=== PATIENT | male | born 1965 | race Caucasian/White ===

== ENCOUNTER 2018-07-03 19:31 | Emergency (ER) | payer OTHER ==
[2018-07-03 19:46] VITALS: BMI 31.0
[2018-07-03] MEDS ORDERED: SODIUM CHLORIDE 1,000 ML IV STA (22:35)
--- NOTE | 2018-07-03 22:35 | PDOC ---
Attending Attestation - HPI HPI: 07/03/18 22:57 Patient is a 53 year old male with no significant past medical history who presents to the ED with complaints of throat pain that began earlier this week. Patient reports experiencing sore throat that he states has gradually increased in intensity over time. He reports being unable to eat solid foods, secondary to pain as well as subjective weight loss over the past 3 weeks but is able to drink liquids just fine. Patient reports having sudden urge to urinate immediately after drinking fluids, that he expressed to be unusual for him, prompting him to come into the ED for further evaluation. Denies chest pain, Sob. Denie nausea, vomiting. Denies contact with sick individuals, out of state travelling. Denies fevers, chills. Denies any other symptoms. Allergies: None Social history: No smoking. No alcohol. No illicit drugs. Surgical history: None PMD: None - Physicial Exam PE: 07/03/18 22:57 Agree with residents Physical Exam. <Vikas Junior - Last Filed: 07/03/18 22:57> - Resident Resident Name: Tereso Salas - ED Attending Attestation I have performed the following: I have examined & evaluated the patient, The case was reviewed & discussed with the resident, I agree w/resident's findings & plan - Medical Decision Making 07/04/18 00:12 53-year-old male with dry mouth polyuria polydipsia and fatigue Labs are consistent with new onset diabetes with normal bicarbonate levels IV fluid normal saline 2 L bolus with repeat fingerstick and insulin when necessary If controlled at a reasonable level patient will be discharged on metformin with specific outpatient follow-up <Kristen Damian - Last Filed: 07/04/18 00:13>
[2018-07-03 23:24] LABS: INR 0.98 (0.83-1.09); PROTHROMBIN TIME (PATIENT) 11.6 SEC (9.7-13.0)
[2018-07-03 23:38] LABS: ALBUMIN 4.2 g/dl (3.4-5.0); ALK PHOS 115 U/L (45-117); ANION GAP 7 MMOL/L (8-16); BILIRUBIN,TOTAL 1.2 mg/dL (0.2-1); BLOOD UREA NITROGEN 16 mg/dL (7-18); CALCIUM 9.7 mg/dL (8.5-10.1); CHLORIDE 98 mmol/L (98-107); CO2 29 mmol/L (21-32); CREATININE 1.3 mg/dL (0.55-1.3); POTASSIUM 4.3 mmol/L (3.5-5.1); SGOT/AST 26 U/L (15-37); SGPT/ALT 62 U/L (13-61); SODIUM 133 mmol/L (136-145); TOT PROT 8.3 g/dl (6.4-8.2)
--- NOTE | 2018-07-03 23:38 | PDOC ---
History of Present Illness - General Chief Complaint: Sore Throat Stated Complaint: PRESSURE IN THE CHEST/SORE THROAT Time Seen by Provider: 07/03/18 22:35 History Source: Patient Exam Limitations: No Limitations - History of Present Illness Initial Comments: 07/04/18 00:07 Patient is a 53M with no known medical problems coming in today complaining of weight loss, polyuria and polydipsia for the past 10 days. Patient states that he is concerned because his mouth always feels dry. Denies fevers, chills, nausea, vomiting. Denies chest pain and shortnes of breath. Amount of weight loss unknown. Patient states that he has not seen a doctor for an large, unknown period of time. Past History - Past Medical History Allergies/Adverse Reactions: Allergies Allergy/AdvReac Type Severity Reaction Status Date / Time No Known Allergies Allergy Verified 07/03/18 19:43 COPD: No - Suicide/Smoking/Psychosocial Hx Smoking History: Never smoked Have you smoked in the past 12 months: No Information on smoking cessation initiated: No Hx Alcohol Use: No Drug/Substance Use Hx: No Review of Systems - Review of Systems Able to Perform ROS?: Yes Comments:: 07/04/18 00:12 GENERAL/CONSTITUTIONAL: No fever or chills. No weakness. HEAD, EYES, EARS, NOSE AND THROAT: No change in vision. No sore throat. CARDIOVASCULAR: No chest pain or shortness of breath RESPIRATORY: No cough, wheezing, or hemoptysis. GASTROINTESTINAL: No nausea, vomiting, diarrhea or constipation. GENITOURINARY: No dysuria, +polyuria MUSCULOSKELETAL: No joint or muscle swelling or pain. No neck or back pain. SKIN: No rash NEUROLOGIC: No headache, vertigo, loss of consciousness, or change in strength/ sensation. ENDOCRINE: +increased thirst. +weight loss HEMATOLOGIC/LYMPHATIC: No anemia, easy bleeding, or history of blood clots. ALLERGIC/IMMUNOLOGIC: No hives or skin allergy. *Physical Exam - Vital Signs Last Vital Signs Temp Pulse Resp BP Pulse Ox 98.6 F 83 20 190/112 H 97 07/03/18 19:44 07/03/18 19:44 07/03/18 19:44 07/03/18 19:44 07/03/18 19:44 - Physical Exam Comments: 07/04/18 00:14 GENERAL: Awake, alert, and fully oriented, in no acute distress HEAD: No signs of trauma, normocephalic, atraumatic EYES: PERRLA, EOMI, sclera anicteric, conjunctiva clear ENT: Auricles normal inspection, hearing grossly normal, nares patent, dry oropharynx NECK: Normal ROM, supple, no lymphadenopathy, JVD, or masses LUNGS: No distress, speaks full sentences, clear to auscultation bilaterally HEART: Regular rate and rhythm, normal S1 and S2, no murmurs, rubs or gallops, peripheral pulses normal and equal bilaterally. ABDOMEN: Soft, nontender, normoactive bowel sounds. No guarding, no rebound. No masses EXTREMITIES: Normal inspection, Normal range of motion, no edema. No clubbing or cyanosis. NEUROLOGICAL: Cranial nerves II through XII grossly intact. Normal speech, normal gait, no focal sensorimotor deficits SKIN: Warm, Dry, normal turgor, no rashes or lesions noted. ED Treatment Course - LABORATORY CBC & Chemistry Diagram: 07/03/18 22:42 07/03/18 22:42 - RADIOLOGY Radiology Studies Ordered: Category Date Time Status CHEST PA & LAT [RAD] Stat Radiology 07/03/18 22:36 Ordered Medical Decision Making - Medical Decision Making 07/04/18 00:14 Patient is 53M with no known medical history here today with polyuria, polydipsia, weight loss. Vitals notable for 190/112. No symptoms consistent with hypertensive emergency. Suspect new onset diabetes. Basic labs sent, will hydrate. CMP shows glucose in 400s, no gap. New onset HTN and DM EKG shows NSR with no st elevations/depressions. Normal axis. Normal intervals. No significant t wave abnormalities. 07/04/18 03:03 BP now controlled, sugar dropping. Discharging with primary care follow up. *DC/Admit/Observation/Transfer Diagnosis at time of Disposition: Diabetes - Referrals Referrals: [facility] [place] [facility] [place] [Provider Group] - Patient Instructions Printed Discharge Instructions: DI for Diabetes Type 2 Additional Instructions: Please follow up with the primary care physician listed below. It is critical that your diabetes is managed by a doctor. The medicine you were prescribed does not cure your diabetes. Please return if you have any new, worsening or concerning symptoms, esepcially fever, chest pain and shortness of breath. You have an appointment on July 06 at noon at the facility below. You will receive a phone call the day before to confirm or reschedule the appointment. Por favor, jocelyne un seguimiento con el mdico de atencin primaria que figura a continuacin. Es crtico que mims diabetes sea manejada por un mdico. El medicamento que le recetaron no sarah beth mims diabetes. Por favor regrese si tiene sntomas nuevos, que empeoran o estn relacionados, fiebre, dolor de pecho y falta de aliento. Tiene olya jeannine el al medioda en las instalaciones a continuacin. Recibir olya llamada telefnica el da anterior para confirmar o reprogramar la jeannine. - Post Discharge Activity
[2018-07-03 23:39] LABS: GLUCOSE,RANDOM 469 mg/dL (74-106)
[2018-07-04 00:06] LABS: HEMATOCRIT 47.3 % (35.4-49); MCH 33.9 pg (25.7-33.7); MCHC 35.9 g/dl (32.0-35.9); MEAN CELL VOLUME 94.5 fl (80-96); PLATELET COUNT 232 K/MM3 (134-434); RDW 12.5 % (11.9-15.9); WHITE BLOOD COUNT 8.5 K/mm3 (4.0-10.0)
[2018-07-04] MEDS ORDERED: SODIUM CHLORIDE 1,000 ML IV STA (00:09)
[2018-07-04] MEDS ORDERED: INSULIN REGULAR HUMAN 100 UNITS/ML *VIAL SQ ONE (02:13)
[2018-07-04] MEDS ORDERED: INSULIN REGULAR HUMAN 100 UNITS/ML *VIAL ONE (02:20)
[2018-07-04 02:29] VITALS: BP 159/72; PULSE 64; TEMP 98.1
[2018-07-04] MEDS ORDERED: metFORMIN HCL 500 MG TABLET (FP) PO ONE (03:16)
--- NOTE | 2018-07-04 09:35 | EKG ---
Test Reason : Blood Pressure : / mmHG Vent. Rate : 076 BPM Atrial Rate : 076 BPM P-R Int : 176 ms QRS Dur : 090 ms QT Int : 386 ms P-R-T Axes : 046 010 027 degrees QTc Int : 434 ms NORMAL SINUS RHYTHM NORMAL ECG NO PREVIOUS ECGS AVAILABLE Confirmed by PORSCHE SHEPPARD, MAXI ([id number]) on 07/04/2018 9:34:52 AM Referred By: Confirmed By:MAXI MORRELL MD
== END 2018-07-04 04:50 | disposition home or self-care (01) ==
LOC: JER 19:31
PROC: 3E0337Z Introduction of Electrolytic and Water Balance Substance into Peripheral Vein, Percutaneous Approach (ICD-10-PCS; principal; 2018-07-03)
PROC: 3E013VG Introduction of Insulin into Subcutaneous Tissue, Percutaneous Approach (ICD-10-PCS; 2018-07-03)
DX: E11.9 Type 2 diabetes mellitus without complications (principal); Z79.84 Long term (current) use of oral hypoglycemic drugs
CPT/HCPCS: 36415; 71046-TC-FY; 80053; 82962; 85027; 85610; 93005; 93010; 99281-25; J7030

== ENCOUNTER 2018-07-31 17:26 | Emergency (ER) | payer OTHER ==
[2018-07-31 17:35] VITALS: BP 126/87; PULSE 79; TEMP 98.5; BMI 31.6
--- NOTE | 2018-07-31 21:43 | PDOC ---
History of Present Illness - General Chief Complaint: Blood Sugar Problem Stated Complaint: SUGAR HIGH Exam Limitations: Language Barrier (Drapery Cutter Machine ID# [id number]) - History of Present Illness Initial Comments: The pt is a 53M w/ a history of T2DM who presents for evaluation of hyperglycemia. The pt reports that he was at clinic yesterday, was called today and told he should come to the ED because his BG was high. It was reportedly in the 300s at home. He takes Metformin 500mg PO BID which he reports being compliant with. He reports recent fatigue/generalized weakness, polyuria, and polydipsia. Denies fevers/chills, chest pain, SOB, abdominal pain, N/V/C/D, or changes in sensation. Of note, the pt also mentioned an approximate 20lbs weight loss over the last 4- 6wks PCP: Dr. Francisca Crawford H&P conducted using veterinary receptionist ID#: [id number] 07/31/18 22:17 Past History - Past Medical History Allergies/Adverse Reactions: Allergies Allergy/AdvReac Type Severity Reaction Status Date / Time No Known Allergies Allergy Verified 07/03/18 19:43 Home Medications: Ambulatory Orders Metformin HCl [Glucophage] 500 mg PO BID #60 tablet 07/04/18 COPD: No Diabetes: Yes HTN: No Liver Disease: No - Surgical History Lung Surgery: No - Immunization History Immunization Up to Date: No - Suicide/Smoking/Psychosocial Hx Smoking History: Never smoked Have you smoked in the past 12 months: No Information on smoking cessation initiated: No Hx Alcohol Use: No Drug/Substance Use Hx: No Review of Systems - Review of Systems Able to Perform ROS?: Yes Comments:: GENERAL/CONSTITUTIONAL: No fever or chills HEAD, EYES, EARS, NOSE AND THROAT: No change in vision. No ear pain or discharge. No sore throat CARDIOVASCULAR: No chest pain or shortness of breath RESPIRATORY: Denies cough, hemoptysis GASTROINTESTINAL: No nausea, vomiting, diarrhea or constipation GENITOURINARY: +polyuria; denies dysuria/hematuria MUSCULOSKELETAL: No joint or muscle swelling or pain. No neck or back pain SKIN: No rash NEUROLOGIC: No headache, vertigo, loss of consciousness, or change in strength/ sensation ENDOCRINE: +increased thirst. +20lbs weight loss over last month (non- intentional) HEMATOLOGIC/LYMPHATIC: No anemia, easy bleeding, or history of blood clots ALLERGIC/IMMUNOLOGIC: No hives or skin allergy 07/31/18 21:42 Is the patient limited Kittitian proficient: Yes *Physical Exam - Vital Signs Last Vital Signs Temp Pulse Resp BP Pulse Ox 98.5 F 79 16 126/87 98 07/31/18 17:31 07/31/18 17:31 07/31/18 17:31 07/31/18 17:31 07/31/18 17:31 - Physical Exam Comments: GENERAL: Awake, alert, and oriented to person/place/time, in no acute distress HEAD: No signs of trauma, normocephalic, atraumatic EYES: PERRLA, EOMI, sclera anicteric, conjunctiva clear ENT: Hearing grossly normal, nares patent, oropharynx clear without exudates. Moist mucosa LUNGS: No distress, speaks full sentences, clear to auscultation bilaterally HEART: Regular rate and rhythm, normal S1 and S2, no murmurs appreciated, peripheral pulses normal and equal bilaterally ABDOMEN: Soft, nontender, normoactive bowel sounds. No guarding, no rebound EXTREMITIES: Normal inspection, Normal range of motion, no edema. No clubbing or cyanosis NEUROLOGICAL: Cranial nerves II through XII grossly intact. Normal speech, no focal sensorimotor deficits SKIN: Warm, Dry, normal turgor, no rashes or lesions noted 07/31/18 21:42 ED Treatment Course - LABORATORY CBC & Chemistry Diagram: 07/31/18 22:15 07/31/18 22:15 - ADDITIONAL ORDERS Additional order review: Laboratory Results 07/31/18 21:31 POC Glucometer 323 07/31/18 21:31 POC Glucometer 323 Medical Decision Making - Medical Decision Making The pt is a 53M w/ a history of T2DM who presents for evaluation of hyperglycemia. Likely 2/2 poor control as pt denies recent illness or changes in medications. ED Course Pt hyperglycemic Labs sent 1L NS ECG 07/31/18 22:33 No leukocytosis No anemia No ALLI LFTs wnl Hyperglycemia w/o elevated AG -Will give IVF -Home does of Metformin given (500mg PO once) 07/31/18 23:21 Plan for D/C w/ PCP f/u Discharge instructions and return precautions given Pt in agreement and verbalized understanding Dispo: home *DC/Admit/Observation/Transfer Diagnosis at time of Disposition: Hyperglycemia - Discharge Dispostion Disposition: HOME Condition at time of disposition: Improved Decision to Admit order: No - Referrals Referrals: Francisca Crawford DO [Non Staff, Medical] - - Patient Instructions Printed Discharge Instructions: DI for Hyperglycemia -- Adult Additional Instructions: You were seen in the Emergency Department for evaluation of high blood sugar. You were treated with IV fluids and Metformin. Review the handout provided at discharge. Follow up with your primary care provider within the week. Return to the Emergency Department if you develop fevers/chills, chest pain, trouble breathing, worsening symptoms, or any new/concerning symptoms. Print Language: BENGALI - Post Discharge Activity
[2018-07-31] MEDS ORDERED: SODIUM CHLORIDE 0.9% 500 ML INFUS.BAG IV ONE (22:05)
[2018-07-31 22:21] LABS: BASO % 0.9 % (0-2.0); EOS % 4.7 % (0-4.5); HEMATOCRIT 40.5 % (35.4-49); HEMOGLOBIN 14.3 GM/dL (11.7-16.9); LYMPH % 46.4 % (8-40); MCH 33.6 pg (25.7-33.7); MCHC 35.4 g/dl (32.0-35.9); MEAN CELL VOLUME 94.8 fl (80-96); MEAN PLT VOLUME 9.9 fl (7.5-11.1); MONO % 10.7 % (3.8-10.2); NEUT % 37.3 % (42.8-82.8); PLATELET COUNT 179 K/MM3 (134-434); RBC 4.27 M/mm3 (4.00-5.60); RDW 12.7 % (11.9-15.9); WHITE BLOOD COUNT 4.4 K/mm3 (4.0-10.0)
[2018-07-31 23:00] LABS: ALBUMIN 3.8 g/dl (3.4-5.0); ALK PHOS 108 U/L (45-117); ANION GAP 8 MMOL/L (8-16); BILIRUBIN,TOTAL 1.2 mg/dL (0.2-1); BLOOD UREA NITROGEN 17 mg/dL (7-18); CHLORIDE 98 mmol/L (98-107); CO2 27 mmol/L (21-32); CREATININE 1.1 mg/dL (0.55-1.3); SGOT/AST 20 U/L (15-37); SGPT/ALT 40 U/L (13-61); SODIUM 133 mmol/L (136-145); TOT PROT 7.8 g/dl (6.4-8.2)
[2018-07-31 23:14] LABS: GLUCOSE,RANDOM 323 mg/dL (74-106)
[2018-07-31] MEDS ORDERED: metFORMIN HCL 500 MG TABLET (FP) PO ONE (23:33)
[2018-07-31] MEDS ORDERED: metFORMIN HCL 500 MG TABLET (FP) ONE (23:35)
--- NOTE | 2018-08-01 00:05 | PDOC ---
Documentation entered by Margaux Courtney SCRIBE, acting as scribe for Cindy Rider MD. Cindy Rider MD: This documentation has been prepared by the Roz dang Renju, SCRIBE, under my direction and personally reviewed by me in its entirety. I confirm that the documentation accurately reflects all work, treatment, procedures, and medical decision making performed by me. Attending Attestation - Resident Resident Name: Scotty Doran - ED Attending Attestation I have performed the following: I have examined & evaluated the patient, The case was reviewed & discussed with the resident, I agree w/resident's findings & plan, Exceptions are as noted - HPI HPI: 07/31/18 23:06 53-year-old male who was seen in the clinic received a call from the clinic today stating that his glucose was high and referred to the emergency department He Does not have fever or chills or nausea or vomiting, chest pain or any shortness of breath. He is not lethargic. ROS is positive for polydipsia, polyuria - Physicial Exam PE: 07/31/18 23:11 Slender 53 y/o M in no acute distress head ncat neck supple oropharynx no exudates Heart RRR. No gallops, murmurs, or rubs. lungs clear to auscultation bilaterally abd soft,nontender ext no e/c/c, MAEx4 skin warm and dry,no rashes neuro A&Ox3,no gross focal neuro deficits - Medical Decision Making 07/31/18 23:08 The patient's labs showed a his hyperglycemia, but he does not have any evidence of metabolic acidosis. plan: patient to receive IV fluids, encouraged to be compliant with his metformin and discharged home
--- NOTE | 2018-08-01 10:30 | EKG ---
Test Reason : Blood Pressure : / mmHG Vent. Rate : 066 BPM Atrial Rate : 066 BPM P-R Int : 180 ms QRS Dur : 094 ms QT Int : 390 ms P-R-T Axes : 044 020 039 degrees QTc Int : 408 ms NORMAL SINUS RHYTHM NORMAL ECG WHEN COMPARED WITH ECG OF 03-JUL-2018 23:43, NO SIGNIFICANT CHANGE WAS FOUND Confirmed by MAXI MORRELL MD ([id number]) on 08/01/2018 10:29:40 AM Referred By: Confirmed By:MAXI MORRELL MD
== END 2018-08-01 00:50 | disposition home or self-care (01) ==
LOC: JER 17:26
DX: E11.65 Type 2 diabetes mellitus with hyperglycemia (principal); Z79.84 Long term (current) use of oral hypoglycemic drugs
CPT/HCPCS: 36415; 80053; 82962; 85025; 93005; 93010; 99282-25